=== PATIENT | male | born 1980 | race African-American/Black ===

== ENCOUNTER 2016-10-10 07:14 | Emergency (ER) | payer OTHER ==
[~2016-10-10] VITALS: Ht 177.8 cm; Wt 102.8 kg
[2016-10-10 08:03] LABS: BASOPHIL COUNT 0.1 K/uL (0-0.1); EOSINOPHIL (%) 2.7 % (0-5); EOSINOPHIL COUNT 0.2 K/uL (0-0.3); HEMATOCRIT 40.4 % (38.0-50.0); IMMATURE GRANULOCYTE (%) 0.2 % (0.0-0.7); INSTRUMENT ABS NEUTROPHIL CT 2.6 K/uL; LYMPHOCYTE COUNT 2.6 K/uL (1.0-2.8); MCH 25.8 PG (29.0-34.0); MCHC 32.7 G/DL (30.0-36.0); MCV 79.1 FL (86-99); MEAN PLAT.VOLUME 9.9 uM^3 (9.0-12.4); MONOCYTE (%) 8.8 % (3-12); MONOCYTE COUNT 0.5 K/uL (0-0.8); NEUTROPHIL (%) 43.4 % (45-76); NEUTROPHIL COUNT 2.6 K/uL (1.8-6.4); PLATELET COUNT 210 K/uL (156-360); RBC DIS.WIDTH-CV 12.6 % (11.8-14.6); RBC DIS.WIDTH-SD 35.9 % (39-53); RED BLOOD COUNT 5.11 M/uL (4.00-5.50); WHITE BLOOD COUNT 5.9 K/uL (4.1-10.2)
[2016-10-10 08:13] LABS: CHLORIDE 103 mEq/L (99-109); POTASSIUM 3.9 mEq/L (3.7-5.4); SODIUM 139 mEq/L (136-147)
[2016-10-10 08:16] LABS: GLUCOSE 102 mg/dL (70-99)
[2016-10-10 08:17] LABS: ANION GAP 10 MEQ/L (2-14)
[2016-10-10 08:18] LABS: TOTAL BILIRUBIN 0.4 mg/dL (0.0-1.0)
[2016-10-10 08:19] LABS: ALKALINE PHOSPHATASE 68 IU/L (3-129); GFR ESTIMATE (CALCULATED) > 59 mL/min/
[2016-10-10 08:20] LABS: UREA NITROGEN (BUN) 7 mg/dL (9-23)
[2016-10-10 08:23] LABS: LIPASE 20 U/L (1.0-51.0)
[2016-10-10 08:52] LABS: ADD MIUA? NO; BILIRUBIN NEGATIVE; BLOOD NEGATIVE; COLOR YELLOW ((YELLOW)); GLUCOSE (STRIP) NEGATIVE; KETONES NEGATIVE; LEUKOCYTES NEGATIVE; NITRITE NEGATIVE; PROTEIN (STRIP) NEGATIVE; SPECIFIC GRAVITY 1.009 (1.000-1.030); UROBILINOGEN 0.2 MG/DL (0.2-1.0)
[2016-10-10] MEDS ORDERED: PRILOSEC20 MG PO (09:22)
[2016-10-10] MEDS ORDERED: MIRALAX17 GM PO (09:22)
[2016-10-10 09:42] VITALS: BP 126/72
[2016-10-11 13:01] LABS: CHLAMYDIA TRACHOMATIS NEGATIVE; NEISSERIA GONORRHOEAE NEGATIVE
== END 2016-10-10 09:47 | disposition home or self-care (01) ==
LOC: EME 07:14
PROVIDERS: Emergency Medicine
DX: R10.9 Unspecified abdominal pain (principal); Z88.0 Allergy status to penicillin
CPT/HCPCS: 74022; 80053; 81003; 83690; 85025; 87491; 87591; 93005; 99281; 99284